=== PATIENT | male | born 1970 ===

== ENCOUNTER 2024-07-26 06:34 | Day surgery (SDC) | payer OTHER, SELFPAY | END 2024-07-26 13:07 | disposition home or self-care (01) | LOC: GI 06:34 | PROVIDERS: ATTENDING PHYSICIAN Student in an Organized Health Care Education/Training Program | DX: K63.89 Other specified diseases of intestine (principal); R19.5 Other fecal abnormalities; Q43.8 Other specified congenital malformations of intestine; D12.4 Benign neoplasm of descending colon; D12.5 Benign neoplasm of sigmoid colon; D12.8 Benign neoplasm of rectum; K63.5 Polyp of colon; K29.00 Acute gastritis without bleeding; K29.50 Unspecified chronic gastritis without bleeding | CPT/HCPCS: 45385; 45380; 88305 ==

== ENCOUNTER 2024-10-11 06:24 | Day surgery (SDC) | payer OTHER, SELFPAY | END 2024-10-11 13:50 | disposition home or self-care (01) | LOC: GI 06:24 | PROVIDERS: ATTENDING PHYSICIAN Student in an Organized Health Care Education/Training Program | DX: R12 Heartburn (principal); R19.5 Other fecal abnormalities; K44.9 Diaphragmatic hernia without obstruction or gangrene; K22.89 Other specified disease of esophagus; K20.90 Esophagitis, unspecified without bleeding | CPT/HCPCS: 43239; 88305; 88342 ==

== ENCOUNTER 2025-07-24 06:27 | Day surgery (SDC) | payer OTHER, SELFPAY | END 2025-07-24 12:45 | disposition home or self-care (01) | LOC: GI 06:27 | PROVIDERS: ATTENDING PHYSICIAN Student in an Organized Health Care Education/Training Program | DX: K52.3 Indeterminate colitis (principal); D12.3 Benign neoplasm of transverse colon; D12.4 Benign neoplasm of descending colon; K63.5 Polyp of colon; K63.89 Other specified diseases of intestine; D12.7 Benign neoplasm of rectosigmoid junction; D12.8 Benign neoplasm of rectum; K22.89 Other specified disease of esophagus; K21.00 Gastro-esophageal reflux disease with esophagitis, without bleeding | CPT/HCPCS: 45385; 45380; 43239; 88305 ==